=== PATIENT | female | born 1995 ===

== ENCOUNTER 2019-05-09 11:56 | Outpatient (CLI) | payer OTHER | END 2019-05-09 12:08 | disposition home or self-care (01) | LOC: RAD 11:56 | DX: S93.491A Sprain of other ligament of right ankle, initial encounter (principal); M25.571 Pain in right ankle and joints of right foot ==

== ENCOUNTER 2019-05-17 13:20 | Outpatient (CLI) | payer OTHER | END 2019-05-17 13:31 | disposition home or self-care (01) | LOC: RAD 13:20 | DX: M79.671 Pain in right foot (principal); M25.571 Pain in right ankle and joints of right foot ==

== ENCOUNTER → 2019-07-16 | Outpatient (CLI) | payer OTHER | END | disposition home or self-care (01) | LOC: RAD 12:33 | PROVIDERS: ATTEND Orthopaedic Surgery | DX: M25.561 Pain in right knee (principal); M25.562 Pain in left knee ==

== ENCOUNTER 2022-07-07 18:53 | Emergency (ER) | payer OTHER ==
[~2022-07-07] VITALS: Ht 172.7 cm; Wt 86.2 kg
== END 2022-07-07 22:55 | disposition home or self-care (01) ==
LOC: ER 18:53
DX: R31.9 Hematuria, unspecified (principal); R10.9 Unspecified abdominal pain

== ENCOUNTER 2024-04-19 14:32 | Outpatient (CLI) | payer OTHER | END 2024-04-19 14:38 | disposition home or self-care (01) | LOC: RAD 14:32 | PROVIDERS: ATTEND Orthopaedic Surgery | DX: M25.561 Pain in right knee (principal) ==